=== PATIENT | male | born 1965 | race Caucasian/White ===

== ENCOUNTER 2017-07-23 15:21 | Emergency (ER) | payer MEDICAID | END 2017-07-23 18:08 | disposition left against medical advice (07) | LOC: D.ER 15:21 | DX: T24.002A Burn of unspecified degree of unspecified site of left lower limb, except ankle and foot, initial encounter (principal); X08.8XXA Exposure to other specified smoke, fire and flames, initial encounter; Y93.89 Activity, other specified; Y92.89 Other specified places as the place of occurrence of the external cause ==

== ENCOUNTER 2018-07-04 15:23 | Inpatient (IN) | payer MEDICAID ==
[~2018-07-04] VITALS: Ht 188 cm; Wt 65.1 kg
[2018-07-04] VITALS (7 sets, daily range): BP systolic 129–180; BP diastolic 62–83; Ht 188 cm; Wt 65.1 kg
[2018-07-04] MEDS ORDERED: GLUCOPHAGE500 MG PO (15:30)
[2018-07-04] MEDS ORDERED: REQUIP1 MG PO (15:31)
[2018-07-04] MEDS ORDERED: DESERYL100 MG PO (15:31)
[2018-07-04] MEDS ORDERED: LEVEMIR100 U/M1 SC (15:31)
[2018-07-04 15:55] LABS: BASOPHILS 0.3 % (0-2); EOSINOPHILS 0.1 % (0-7); HEMATOCRIT 52.5 % (42.0-54.0); HEMOGLOBIN 17.1 g/dL (13.5-17.5); IMMATURE GRANULOCYTES 1.8 % (0-5); LYMPHOCYTES 9.5 % (15-50); MCH 30.9 pg (26.0-34.0); MCHC 32.6 g/dL (31.0-37.0); MCV 94.8 fL (80.0-100.0); MEAN PLATELET VOLUME 10.4 fL (7.4-10.4); MONOCYTES 6.7 % (2-11); NEUTROPHILS 81.6 % (40-80); PLATELET COUNT 315 10x3/uL (130-400); RBC 5.54 10x6/uL (4.20-6.10); RDW 14.1 % (11.5-14.5)
[2018-07-04 16:06] LABS: KETONE - SERUM SMALL mg/dL (NEGATIVE)
[2018-07-04 16:11] LABS: APPEARANCE CLEAR (CLEAR); BILIRUBIN NEGATIVE (NEGATIVE); COLOR YELLOW (YELLOW); GLUCOSE 1000 mg/dL (NEGATIVE); KETONE LARGE mg/dL (NEGATIVE); NITRITE NEGATIVE (NEGATIVE); PROTEIN 2+ mg/dL (NEGATIVE); SPECIFIC GRAVITY 1.025 (1.005-1.020); UROBILINOGEN NORMAL (NORMAL)
[2018-07-04 16:17] LABS: BACTERIA FEW /hpf (NONE SEEN); HYALINE CAST 0-5 /lpf (NONE SEEN); RED CELLS - URINE 0-5 /hpf (0-5)
[2018-07-04 16:19] LABS: APPEARANCE CLEAR (CLEAR); BACTERIA FEW /hpf (NONE SEEN); BILIRUBIN NEGATIVE (NEGATIVE); COLOR YELLOW (YELLOW); GLUCOSE 1000 mg/dL (NEGATIVE); KETONE LARGE mg/dL (NEGATIVE); NITRITE NEGATIVE (NEGATIVE); PROTEIN 2+ mg/dL (NEGATIVE); RED CELLS - URINE 0-5 /hpf (0-5); SPECIFIC GRAVITY 1.025 (1.005-1.020); UROBILINOGEN NORMAL (NORMAL)
[2018-07-04 16:20] LABS: GRANULAR CAST 0-5 /lpf (NONE SEEN)
[2018-07-04 16:37] LABS: ALBUMIN 4.5 g/dL (3.4-5.0); ALKALINE PHOSPHATASE 98 U/L (46-116); ALT (SGPT) 27 U/L (10-68); BILIRUBIN - TOTAL 0.59 mg/dL (0.2-1.3); CALCIUM 9.5 mg/dL (8.5-10.1); CHLORIDE - SERUM 94 mmol/L (98-107); CREATININE - SERUM 1.6 mg/dL (0.6-1.3); LIPASE 161 U/L (73-393); MAGNESIUM - SERUM 2.1 mg/dL (1.8-2.4); POTASSIUM - SERUM 5.5 mmol/L (3.5-5.1); PRO BNP 217 pg/mL (0-125); SODIUM 130 mmol/L (136-145); UREA NITROGEN 28 mg/dL (7-18); eGFR NON AFRICAN AMERICAN 48 mL/min (90-120)
[2018-07-04 16:41] LABS: CALC OSMOLALITY 289 mosm/kg (275-300); CARBON DIOXIDE 5.5 mmol/L (21.0-32.0); GLUCOSE 516 mg/dL (74-106); TROPONIN-I < 0.017 ng/mL (0.000-0.060)
[2018-07-04 21:02] LABS: ANION GAP 28.3 mmol/L (8-16); CALCIUM 8.6 mg/dL (8.5-10.1); CREATININE - SERUM 1.4 mg/dL (0.6-1.3); POTASSIUM - SERUM 4.7 mmol/L (3.5-5.1)
[2018-07-04 21:05] LABS: CARBON DIOXIDE 9.4 mmol/L (21.0-32.0)
[2018-07-05] VITALS (17 sets, daily range): BP systolic 93–151; BP diastolic 53–81
[2018-07-05 01:19] LABS: ANION GAP 20.3 mmol/L (8-16); CARBON DIOXIDE 11.7 mmol/L (21.0-32.0); CREATININE - SERUM 1.3 mg/dL (0.6-1.3); MAGNESIUM - SERUM 1.7 mg/dL (1.8-2.4)
[2018-07-05 03:36] LABS: BASOPHILS 0.2 % (0-2); EOSINOPHILS 0.2 % (0-7); HEMOGLOBIN 13.9 g/dL (13.5-17.5); IMMATURE GRANULOCYTES 1.3 % (0-5); LYMPHOCYTES 20.2 % (15-50); MCH 31.1 pg (26.0-34.0); MCHC 34.3 g/dL (31.0-37.0); MEAN PLATELET VOLUME 9.7 fL (7.4-10.4); MONOCYTES 9.6 % (2-11); NEUTROPHILS 68.5 % (40-80); RBC 4.47 10x6/uL (4.20-6.10); RDW 13.7 % (11.5-14.5)
[2018-07-05 03:39] LABS: HEMATOCRIT 40.5 % (42.0-54.0); MCV 90.6 fL (80.0-100.0); PLATELET COUNT 201 10x3/uL (130-400); WBC 10.4 10x3/uL (4.8-10.8)
[2018-07-05 03:40] LABS: KETONE - SERUM NEGATIVE (NEGATIVE)
[2018-07-05 04:10] LABS: ALBUMIN 3.4 g/dL (3.4-5.0); ALKALINE PHOSPHATASE 83 U/L (46-116); BILIRUBIN - TOTAL 0.57 mg/dL (0.2-1.3); CALC OSMOLALITY 274 mosm/kg (275-300); CALCIUM 7.9 mg/dL (8.5-10.1); CARBON DIOXIDE 13.2 mmol/L (21.0-32.0); CHLORIDE - SERUM 108 mmol/L (98-107); CREATININE - SERUM 1.1 mg/dL (0.6-1.3); GLUCOSE 114 mg/dL (74-106); MAGNESIUM - SERUM 1.6 mg/dL (1.8-2.4); POTASSIUM - SERUM 4.2 mmol/L (3.5-5.1); PROTEIN - SERUM 6.1 g/dL (6.4-8.2); SODIUM 136 mmol/L (136-145); UREA NITROGEN 18 mg/dL (7-18); eGFR NON AFRICAN AMERICAN 75 mL/min (90-120)
[2018-07-05 04:11] LABS: ALT (SGPT) 58 U/L (10-68)
[2018-07-05 12:15] LABS: ANION GAP 20.7 mmol/L (8-16); CALCIUM 7.9 mg/dL (8.5-10.1); CARBON DIOXIDE 11.5 mmol/L (21.0-32.0); CREATININE - SERUM 1.2 mg/dL (0.6-1.3); MAGNESIUM - SERUM 1.8 mg/dL (1.8-2.4); POTASSIUM - SERUM 4.2 mmol/L (3.5-5.1)
[2018-07-05 19:22] LABS: ANION GAP 15.8 mmol/L (8-16); CALCIUM 8.2 mg/dL (8.5-10.1); CREATININE - SERUM 1.1 mg/dL (0.6-1.3); POTASSIUM - SERUM 3.8 mmol/L (3.5-5.1)
[2018-07-06] VITALS: BP 90/48
[2018-07-06 04:00] VITALS: BP 99/53
[2018-07-06 04:29] LABS: BASOPHILS 0.2 % (0-2); EOSINOPHILS 1.9 % (0-7); HEMOGLOBIN 14.1 g/dL (13.5-17.5); IMMATURE GRANULOCYTES 0.4 % (0-5); MCH 30.9 pg (26.0-34.0); MCHC 34.4 g/dL (31.0-37.0); MCV 89.7 fL (80.0-100.0); MEAN PLATELET VOLUME 9.6 fL (7.4-10.4); MONOCYTES 7.3 % (2-11); NEUTROPHILS 51.2 % (40-80); PLATELET COUNT 181 10x3/uL (130-400); RBC 4.57 10x6/uL (4.20-6.10); WBC 5.2 10x3/uL (4.8-10.8)
[2018-07-06 05:00] LABS: ALBUMIN 3.2 g/dL (3.4-5.0); ALKALINE PHOSPHATASE 71 U/L (46-116); BILIRUBIN - TOTAL 0.48 mg/dL (0.2-1.3); CALCIUM 8.4 mg/dL (8.5-10.1); CARBON DIOXIDE 20.6 mmol/L (21.0-32.0); GLUCOSE 138 mg/dL (74-106); PROTEIN - SERUM 6.2 g/dL (6.4-8.2); UREA NITROGEN 14 mg/dL (7-18); eGFR NON AFRICAN AMERICAN 83 mL/min (90-120)
[2018-07-06 05:01] LABS: ALT (SGPT) 42 U/L (10-68)
[2018-07-06 05:06] LABS: CALC OSMOLALITY 281 mosm/kg (275-300); CHLORIDE - SERUM 108 mmol/L (98-107); POTASSIUM - SERUM 3.8 mmol/L (3.5-5.1); SODIUM 140 mmol/L (136-145)
== END 2018-07-06 15:08 | disposition home or self-care (01) | DRG 639 ==
LOC: D.ER 15:23 → D.M2 17:25 → D.EDHOLD 17:25 → D.ICU 19:00 → D.M2 07-05 22:10 → D.SDCHOLD 07-06 15:04 → D.M2 07-06 15:07
PROVIDERS: Family Medicine; Internal Medicine Nephrology
DX: E11.10 Type 2 diabetes mellitus with ketoacidosis without coma (principal); Z79.4 Long term (current) use of insulin; Z91.14 Patient's other noncompliance with medication regimen; G25.81 Restless legs syndrome

== ENCOUNTER 2018-08-05 23:53 | Emergency (ER) | payer MEDICAID ==
[~2018-08-05] VITALS: Ht 188 cm; Wt 86.4 kg
[~2018-08-05 23:53] MED LIST: DESERYL100 MG PO; GLUCOPHAGE500 MG PO; LEVEMIR100 U/M1 SC; REQUIP1 MG PO
[2018-08-05 23:56] VITALS: Ht 188 cm; Wt 86.4 kg
[2018-08-05] MEDS ORDERED: HUMALOG 30100 UNITS/ SC (23:59)
[2018-08-06 00:44] LABS: BASOPHILS 0.2 % (0-2); HEMATOCRIT 41.8 % (42.0-54.0); HEMOGLOBIN 13.7 g/dL (13.5-17.5); IMMATURE GRANULOCYTES 0.3 % (0-5); LYMPHOCYTES 10.8 % (15-50); MCH 30.8 pg (26.0-34.0); MCHC 32.8 g/dL (31.0-37.0); MCV 93.9 fL (80.0-100.0); MEAN PLATELET VOLUME 9.4 fL (7.4-10.4); MONOCYTES 7.5 % (2-11); NEUTROPHILS 80.2 % (40-80); RBC 4.45 10x6/uL (4.20-6.10); WBC 13.9 10x3/uL (4.8-10.8)
[2018-08-06 00:49] LABS: PLATELET COUNT 248 10x3/uL (130-400)
[2018-08-06 00:54] LABS: ALBUMIN 3.6 g/dL (3.4-5.0); ALKALINE PHOSPHATASE 68 U/L (46-116); ALT (SGPT) 27 U/L (10-68); BILIRUBIN - TOTAL 0.17 mg/dL (0.2-1.3); CALC OSMOLALITY 289 mosm/kg (275-300); CALCIUM 9.2 mg/dL (8.5-10.1); CARBON DIOXIDE 33.3 mmol/L (21.0-32.0); CHLORIDE - SERUM 105 mmol/L (98-107); CREATININE - SERUM 0.8 mg/dL (0.6-1.3); POTASSIUM - SERUM 3.4 mmol/L (3.5-5.1); PROTEIN - SERUM 7.2 g/dL (6.4-8.2); SODIUM 145 mmol/L (136-145); UREA NITROGEN 18 mg/dL (7-18); eGFR NON AFRICAN AMERICAN > 90 mL/min (90-120)
[2018-08-06 00:56] LABS: GLUCOSE 85 mg/dL (74-106)
[2018-08-06 03:08] VITALS: BP 160/81
== END 2018-08-06 03:09 | disposition home or self-care (01) ==
LOC: D.ER 23:53
PROVIDERS: Family Medicine
DX: E11.649 Type 2 diabetes mellitus with hypoglycemia without coma (principal); F17.200 Nicotine dependence, unspecified, uncomplicated

== ENCOUNTER 2019-03-11 19:28 | Emergency (ER) | payer MEDICAID ==
[~2019-03-11] VITALS: Ht 188 cm; Wt 83.0 kg
[~2019-03-11 19:28] MED LIST changes: +HUMALOG 30100 UNITS/ SC
[2019-03-11 19:30] VITALS: BP 166/98; Ht 188 cm; Wt 83.0 kg
== END 2019-03-11 21:37 | disposition left against medical advice (07) ==
LOC: D.ER 19:28
DX: S81.812A Laceration without foreign body, left lower leg, initial encounter (principal); W18.30XA Fall on same level, unspecified, initial encounter; Y93.89 Activity, other specified; Y92.89 Other specified places as the place of occurrence of the external cause

== ENCOUNTER 2020-01-07 20:35 | Emergency (ER) | payer MEDICAID ==
[2019-03-11 19:30] VITALS: Ht 188 cm; Wt 77.3 kg
[~2020-01-07] VITALS: Ht 188 cm; Wt 77.3 kg
[2020-01-07] MEDS ORDERED: [UNRECOGNIZED DRUG - OTHER] (20:40)
[2020-01-07] MEDS ORDERED: PLAVIX75 MG PO (20:41)
[2020-01-07] MEDS ORDERED: BAYER CHEWABLE81 MG PO (20:41)
[2020-01-07] MEDS ORDERED: LEXAPRO10 MG PO (20:41)
[2020-01-07 20:58] LABS: BASOPHILS 0.4 % (0-2); EOSINOPHILS 5.6 % (0-7); HEMATOCRIT 41.3 % (42.0-54.0); HEMOGLOBIN 13.6 g/dL (13.5-17.5); IMMATURE GRANULOCYTES 0.3 % (0-5); LYMPHOCYTES 30.4 % (15-50); MCH 31.1 pg (26.0-34.0); MCHC 32.9 g/dL (31.0-37.0); MCV 94.5 fL (80.0-100.0); MEAN PLATELET VOLUME 10.4 fL (7.4-10.4); MONOCYTES 9.2 % (2-11); NEUTROPHILS 54.1 % (40-80); PLATELET COUNT 286 10x3/uL (130-400); RBC 4.37 10x6/uL (4.20-6.10); WBC 7.4 10x3/uL (4.8-10.8)
[2020-01-07 21:11] LABS: APTT 25.7 SECONDS (22.8-39.4); INR 0.86 (0.85-1.17); PROTIME 11.7 SECONDS (11.6-15.0)
[2020-01-07 21:18] LABS: ANION GAP 11.7 mmol/L (8-16); CALCIUM 9.1 mg/dL (8.5-10.1); CARBON DIOXIDE 26.5 mmol/L (21.0-32.0); CREATININE - SERUM 1.1 mg/dL (0.6-1.3); POTASSIUM - SERUM 4.2 mmol/L (3.5-5.1)
[2020-01-07 21:24] LABS: ALBUMIN 3.4 g/dL (3.4-5.0); BILIRUBIN - TOTAL 0.34 mg/dL (0.2-1.3); PROTEIN - SERUM 6.9 g/dL (6.4-8.2)
[2020-01-07 21:55] VITALS: BP 147/67
== END 2020-01-07 21:55 | disposition home or self-care (01) ==
LOC: D.ER 20:35
PROVIDERS: Family Medicine
DX: T81.89XA Other complications of procedures, not elsewhere classified, initial encounter (principal); E11.9 Type 2 diabetes mellitus without complications; Z79.4 Long term (current) use of insulin; Z72.0 Tobacco use

== ENCOUNTER → 2020-08-20 | Emergency (ER) | payer MEDICAID ==
[~2020-08-20] VITALS: Ht 188 cm; Wt 97.7 kg
[~2020-08-20] MED LIST changes: +BAYER CHEWABLE81 MG PO; +CLEOCIN HCL300 MG PO; +HUMALOG; +LANTUS; +LEXAPRO10 MG PO; +PLAVIX75 MG PO; +[UNRECOGNIZED DRUG - OTHER]
[2020-08-20 17:54] VITALS: Ht 188 cm; Wt 97.7 kg
[2020-08-20 19:48] LABS: BASOPHILS 0.6 % (0-2); EOSINOPHILS 2.6 % (0-7); HEMATOCRIT 47.5 % (42.0-54.0); HEMOGLOBIN 15.9 g/dL (13.5-17.5); IMMATURE GRANULOCYTES 0.3 % (0-5); LYMPHOCYTES 25.5 % (15-50); MCH 28.2 pg (26.0-34.0); MCHC 33.5 g/dL (31.0-37.0); MCV 84.2 fL (80.0-100.0); MEAN PLATELET VOLUME 8.8 fL (7.4-10.4); MONOCYTES 6.2 % (2-11); NEUTROPHILS 64.8 % (40-80); PLATELET COUNT 307 10x3/uL (130-400); RBC 5.64 10x6/uL (4.20-6.10); RDW 25.9 % (11.5-14.5)
[2020-08-20 20:10] LABS: ALKALINE PHOSPHATASE 85 U/L (30-120); ALT (SGPT) 19 U/L (10-68); BILIRUBIN - TOTAL 0.63 mg/dL (0.2-1.3); CALC OSMOLALITY 261 mosm/kg (275-300); CALCIUM 8.6 mg/dL (8.5-10.1); CARBON DIOXIDE 24.2 mmol/L (21.0-32.0); CHLORIDE - SERUM 99 mmol/L (98-107); CREATININE - SERUM 0.2 mg/dL (0.6-1.3); GLUCOSE 88 mg/dL (74-106); PROTEIN - SERUM 7.1 g/dL (6.4-8.2); SODIUM 131 mmol/L (136-145); UREA NITROGEN 12 mg/dL (7-18); eGFR NON AFRICAN AMERICAN > 90 mL/min (90-120)
[2020-08-20 20:11] LABS: POTASSIUM - SERUM 7.9 mmol/L (3.5-5.1)
[2020-08-20 20:30] VITALS: BP 147/76
== END | disposition home or self-care (01) ==
LOC: D.ER 17:30
PROVIDERS: Family Medicine
DX: L03.116 Cellulitis of left lower limb (principal); E11.9 Type 2 diabetes mellitus without complications; Z79.4 Long term (current) use of insulin; T81.9XXA Unspecified complication of procedure, initial encounter

== ENCOUNTER 2021-03-23 14:04 | Emergency (ER) | payer MEDICAID ==
[~2021-03-23] VITALS: Ht 188 cm; Wt 65.9 kg
[2021-03-23 14:14] VITALS: Ht 188 cm; Wt 65.9 kg
[2021-03-23 16:35] VITALS: BP 110/57
[2021-03-23] MEDS ORDERED: HYDROCODON-ACE1 EA10 PO (18:54)
== END 2021-03-23 19:14 | disposition home or self-care (01) ==
LOC: D.ER 14:04
DX: M79.602 Pain in left arm (principal); Z86.73 Personal history of transient ischemic attack (TIA), and cerebral infarction without residual deficits; E11.9 Type 2 diabetes mellitus without complications; I25.2 Old myocardial infarction; Z72.0 Tobacco use; Z79.4 Long term (current) use of insulin; R20.0 Anesthesia of skin; R22.32 Localized swelling, mass and lump, left upper limb